=== PATIENT | male | born 1940 | race Hispanic/Latino ===

== ENCOUNTER 2021-09-23 09:19 | Outpatient (CLI) | payer OTHER, SELFPAY ==
--- NOTE | ~2021-09-23 | XR_ITS ---
XR shoulder LT min 2V DATE: 09/23/2021 09:43 INDICATION: Bilateral anterior shoulder pain for 2 months. No known injury. TECHNIQUE: 4 views COMPARISON: None FINDINGS: There is spurring of the humeral head at the glenohumeral joint consistent with osteoarthri tis. There is a focal calcification at the superior aspect of the greater tuberosity consistent with calci fic tendinitis at the rotator cuff insertion. No fracture, dislocation, periosteal reaction or bone destruction. 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 ER SPLICER
--- NOTE | ~2021-09-23 | XR_ITS ---
XR cervical spine 4-5V DATE: 09/23/2021 09:43 INDICATION: Bilateral shoulder pain for 2 months, radiating to neck TECHNIQUE: AP, open-mouth, lateral, swimmer views COMPARISON: None FINDINGS: C1 and C2 are normally aligned and the odontoid process is intact. No fracture or dislocati on, locked facet or prevertebral soft tissue swelling is detected. There is levocurvature of the cervical spine. There is approximately 1.2 mm anterolisthesis at C4-5 and at C6-7 and approximately 2.3 mm anterolist hesis at C7-T1. There is mild loss of interspace height at C2-3 and C3-4. There is moderately severe degenerative disc disease at C5-6, mild degenerative disc disease at C6-7. There is uncovertebral joint spurring, particularly at C5-6 and on the right at C6-7. IMPRESSION: Cervical spondylosis including mild anterolisthesis at multiple levels Reviewed, dictated and finalized at location B. Y SPECIALIST IMPRESSION: Cervical spondylosis including mild anterolisthesis at multiple lev els
--- NOTE | ~2021-09-23 | XR_ITS ---
XR shoulder RT min 2V DATE: 09/23/2021 09:43 INDICATION: Bilateral anterior shoulder pain for 2 months. No known injury. TECHNIQUE: 4 views COMPARISON: None FINDINGS: Diffuse osteopenia. No fracture or dislocation, periosteal reaction or bone destruction. No abnormal soft tissue calcification. IMPRESSION: Osteopenia Reviewed, dictated and finalized at location B. CLASSROOM TUTOR IMPRESSION: Osteopenia
== END 2021-09-23 09:20 | disposition home or self-care (01) ==
LOC: ANHIMG 09:24
PROVIDERS: PCP Family Medicine; Visit Provider Family Medicine
DX: M85.811 Other specified disorders of bone density and structure, right shoulder (principal); M75.102 Unspecified rotator cuff tear or rupture of left shoulder, not specified as traumatic; M75.32 Calcific tendinitis of left shoulder; M19.012 Primary osteoarthritis, left shoulder; M47.892 Other spondylosis, cervical region
CPT/HCPCS: 72050; 73030

== ENCOUNTER 2021-10-31 09:18 | Outpatient (CLI) | payer OTHER, SELFPAY ==
--- NOTE | ~2021-10-31 | XR_ITS ---
XR knee LT min 4V DATE: 10/31/2021 09:42 INDICATION: Fall one week ago. Posterior left knee pain. TECHNIQUE: 4 views COMPARISON: None FINDINGS: There is a staple surgical device in the medial femoral condyle. There is severe osteoarthritic change at the lateral and patellofemoral compartments including joint space narrowing and prominent periarticular spurring. There is valgus deformity. There is moderate suprapatellar knee joint effusion. There is mild chondrocalcinosis. No fracture or dislocation, periosteal reaction or bone destruction is detected. IMPRESSION: Severe osteoarthritis at the patellofemoral and lateral compartments Knee joint effusion Chondrocalcinosis Postoperative change of the medial femoral condyle Reviewed, dictated and finalized at location A. IMPRESSION: Severe osteoarthritis at the patellofemoral and lateral compartment s Knee joint effusion Chondrocalcinosis Postoperative change of the medial femoral condyle
--- NOTE | ~2021-10-31 | XR_ITS ---
XR hip LT min 3V w AP pelvis DATE: 10/31/2021 09:42 INDICATION: Fall one week ago. Left hip pain. TECHNIQUE: AP pelvis. AP, lateral and crosstable lateral views of left hip COMPARISON: None . FINDINGS: There is degenerative disc disease at included L3-4 through L5-S1. The pubic symphysis and sacroiliac joints are intact. No pelvic fracture or bone destruction. Hip joint spaces are symmetric and relatively preserved. No fracture, dislocation, avascular necrosis or bone destruction of the left hip IMPRESSION: Degenerative disc disease at included L3-4 through L5-S1 Negative left hip Reviewed, dictated and finalized at location A.
== END 2021-10-31 09:19 | disposition home or self-care (01) ==
PROVIDERS: PCP Family Medicine; Visit Provider Family Medicine
DX: M25.552 Pain in left hip (principal); M25.462 Effusion, left knee; M17.12 Unilateral primary osteoarthritis, left knee; M51.37 Other intervertebral disc degeneration, lumbosacral region
CPT/HCPCS: 73502; 73564

== ENCOUNTER 2021-12-09 10:00 | Outpatient (RCR) | payer OTHER, SELFPAY ==
[2021-10-16 08:03] VITALS: BP_SYST 170
--- NOTE | 2021-10-16 09:20 | PTOPEVAL ---
Thank you for referring Marcelo Askew to [facility].? The patient is scheduled to be seen for therapy? ____x/week for ___ weeks. Please review, sign, date and return this plan of care ITALIA. I agree with and certify that the following plan of care is medically necessary. Referring Physician Date Admitting Provider: Attending Provider: Jason Diaz MD Referring Provider: *PT Outpatient Evaluation Start: 10/16/21 Evaluation Information Diagnosis Pain in both shoulders Onset ~3 months Subjective Information Pt states for the last few Query Text:As Reported By Patient/ months he has been having pain Family in both shoulder R>L. He states certain ways he raises his arm, or lifts something there will be pain. He states he has been taking Tylenol and that seems to help a little. Pt states he lifts weights at the gym. He has states lifting with his upper body since his shoulders started hurting, he would like to get back to this. Pain Assessment Bilateral Shoulder(s) Reported Pain Level 3 Pain Description Sharp,With Movement Pain Frequency Acute,Intermittent Lowest Pain Intensity 0 Greatest Pain Intensity 8 Pain Aggravating Factors Exercise/Activity,Lifting Upper Extremity Range of Motion Right Scapular: Retraction Normal Shoulder Flexion - Active 132 Shoulder Flexion - Passive 150 Shoulder Abduction - Active 150 Shoulder Abduction - Passive 170 Shoulder Medial Rotation - Active L1 Shoulder Lateral Rotation - Active T4 Scapular/Shoulder Range of Motion Increase pain reports with R Comments shoulder IR Left Scapular: Retraction Normal Shoulder Flexion - Active 132 Shoulder Flexion - Passive 150 Shoulder Abduction - Active 145 Shoulder Abduction - Passive 170 Shoulder Medial Rotation - Active T10 Shoulder Lateral Rotation - Active T4 Upper Extremity Muscle Strength Testing Gross Upper Extremity Strength Comments B shoulder flexion 4-/5 B shoulder abd 4/5 B shoulder IR 4/5 L shoulder ER 4/5 R shoulder ER 3+/5 B elbow flex/ext 4+/5 B senior maintenance machinist strength - firm Posture Posture Evaluation View Posterior Head/C-Spine Posture Neutral Position
--- NOTE | 2021-10-30 09:15 | PCPTNOTE ---
Patient called to cancel appointment this date stating he fell on his hip yesterday and wants to take it easy today due to feeling sore.
[2021-11-13 10:30] VITALS: BP_SYST 170; BP_SYST 178
--- NOTE | 2021-11-13 14:49 | PTOPEVAL ---
PHYSICAL THERAPY PROGRESS NOTE. Thank you for referring Marcelo Askew to [facility].? The patient is scheduled to be seen for therapy? 1x/week for 4 weeks. Please review, sign, date and return this plan of care ITALIA. I agree with and certify that the following plan of care is medically necessary. Referring Physician Date Attending Provider: Jason Diaz MD Evaluation Information Diagnosis Pain in both shoulders Onset ~3 months Subjective Information Pt states he went to see the Query Text:As Reported By Patient/ doctor for his shoulders. He Family received injections in both shoulders. He states therapy is helping and would like to continue. He reports at times he can have minimal shoulder pain, his pain increases with movement. He continues to report more pain in the R shoulder. Self Report Pain Assessment Bilateral Shoulder(s) Reported Pain Level 4 Greatest Pain Intensity 7 Upper Extremity Range of Motion Right Scapular: Retraction Normal Shoulder Flexion - Active 135 Shoulder Flexion - Passive 164 Shoulder Abduction - Active 148 Shoulder Abduction - Passive 170 Shoulder Medial Rotation - Active L1 Shoulder Lateral Rotation - Active T4 Scapular/Shoulder Range of Motion Increase pain reports with R shoulder IR Left Scapular: Retraction Normal Shoulder Flexion - Active 138 Shoulder Flexion - Passive 164 Shoulder Abduction - Active 148 Shoulder Abduction - Passive 178 Shoulder Medial Rotation - Active T10 Shoulder Lateral Rotation - Active T4 Upper Extremity Muscle Strength Testing Gross Upper Extremity Strength Comments B shoulder flexion 4-/5 B shoulder abd 4/5 B shoulder IR 4/5 L shoulder ER 4/5 R shoulder ER 4-/5 B elbow flex/ext 4+/5 B power distributor strength - firm Posture Head/C-Spine Posture Neutral Position Thoracic Spine Posture Neutral Lumbar Spine Posture Neutral Shoulder Posture (L) Rounded,(R) Rounded PT Clinical Summary Marcelo presents to therapy today for his progress report following 7 therapy visits for his diagnosis of bilateral shoulder pain. Today he demonstrates improvements in both his active and passive
[2021-12-09 09:55] VITALS: BP_SYST 174; BP_SYST 178
--- NOTE | 2021-12-09 10:44 | PTOPEVAL ---
PHYSICAL THERAPY PROGRESS REPORT AND DISCHARGE SUMMARY. Thank you for referring Marcelo Askew to [facility].? The patient is scheduled to be discharged from skilled physical therapy services at this time. Please review, sign, date and return this plan of care ITALIA. I agree with and certify that the following plan of care is medically necessary. Referring Physician Date Attending Provider: Jason Diaz MD Evaluation Information Diagnosis Pain in both shoulders Onset ~3 months Subjective Information Pt states he is still having Query Text:As Reported By Patient/ some mild shoulder pain but Family not as bad as before. He has been golfing 4 times without an increase in shoulder pain. Pain Assessment Self Report Pain Assessment Bilateral Shoulder(s) Reported Pain Level 2 Greatest Pain Intensity 4 Additional Pain Comments reports of soreness vs true shoulder pain Upper Extremity Range of Motion Scapular/ Shoulder Range of Motion Right Scapular: Retraction Normal Shoulder Flexion - Active 140 Shoulder Flexion - Passive 168 Shoulder Abduction - Active 155 Shoulder Abduction - Passive 174 Shoulder Medial Rotation - Active T12 Shoulder Lateral Rotation - Active T4 Scapular/Shoulder Range of Motion no reports in shoulder pain Left Scapular: Retraction Normal Shoulder Flexion - Active 151 Shoulder Flexion - Passive 164 Shoulder Abduction - Active 158 Shoulder Abduction - Passive 178 Shoulder Medial Rotation - Active T10 Shoulder Lateral Rotation - Active T4 Upper Extremity Muscle Strength Testing Gross Upper Extremity Strength Comments B shoulder flexion 4+/5 B shoulder abd 4/5 B shoulder IR 4+/5 L shoulder ER 4/5 R shoulder ER 4/5 B elbow flex/ext 4+/5 B litigation examiner strength - firm PT Clinical Summary Marcelo presents to therapy today for his progress report following 12 visits of therapy . Today he demonstrates beyond functional active and passive ROM, good strength that is equal to the uninvolved side, no reports of pain, and improved postural awareness. He has met all of his therapy goals at this time and no longer requires skilled care. He is to be di
== END 2021-12-10 11:04 | disposition home or self-care (01) ==
LOC: ANHPT 10:00
PROVIDERS: PCP Family Medicine; Visit Provider Orthopaedic Surgery
DX: M25.511 Pain in right shoulder (principal); M25.512 Pain in left shoulder
CPT/HCPCS: 97110; 97112; 97140; 97161

== ENCOUNTER → 2024-04-11 10:43 | Outpatient (CLI) | payer MEDICARE, SELFPAY ==
--- NOTE | ~2024-04-11 | XR_ITS ---
EXAMINATION:XR cervical spine 4-5V DATE: 04/11/2024 11:04 INDICATION: 3 months of cervicalgia TECHNIQUE: AP, lateral, lateral swimmers and odontoid views of the cervical spine are provided. COMPARISON: 09/23/2021 FINDINGS: 12 degrees cervical levocurvature. 2 mm anterolisthesis C4 on C5. Odontoid is intact. Normal atlanto axial interval. Vertebral body heights are normal. Moderate disc height loss with degenerative anteri or endplate osteophytes at C5-C6. Mild disc height loss at C2-C3, C3-C4 and C6-C7. Severe uncovertebr al osteoarthritis on the right at C5-C6 and C6-C7 with mild to moderate uncovertebral osteoarthritis at the remaining cervical levels. There is also severe cervical facet osteoarthritis bilaterally at C 4-C5 and on the right at C5-C6 and C6-C7. Mild to moderate facet osteoarthritis the remaining cervica l levels. Prevertebral soft tissues are normal. Visualized apices of the lungs are clear. IMPRESSION: 1. Moderate cervical spondylosis. Reviewed, dictated and finalized at location A.
== END ==
PROVIDERS: PCP Family Medicine; Visit Provider Family Medicine
DX: M43.02 Spondylolysis, cervical region (principal)
CPT/HCPCS: 72050

== ENCOUNTER 2024-04-17 08:22 | Outpatient (CLI) | payer MEDICARE, SELFPAY ==
--- NOTE | ~2024-04-17 | MR_ITS ---
MR cervical spine wo con Ordering provider: Francisco Hudson MD History: 83 years Male with . Cervicalgia, right side neck pain . Comparison: None. Technique: MRI cervical spine without contrast. FINDINGS: CERVICAL SPINAL CORD/CRANIAL CERVICAL JUNCTION: Normal in signal and caliber. CERVICAL VERTEBRAL BODIES: Normal height and alignment. Normal marrow signal. DISK SPACES: Degenerative disc disease seen at the level of C5-C6 and C6-C7. Multilevel facet joint d isease involving the levels of C3-C4, C4-C5, C5-C6 and C6-C7 more on the right side. C2-C3: No stenosis. C3-C4: No stenosis. Narrowing of the right and left foramen most likely by osteophytes. Root compress ion is possible. C4-C5: No stenosis. C5-C6: No stenosis. Mild diffuse disc bulge with osteophyte complex. Mild narrowing of the right inte rvertebral foramen with root compression. C6-C7: No stenosis. C7-T1: No stenosis. VISUALIZED PARASPINOUS SOFT TISSUES: Normal. IMPRESSION: 1. No acute osseous abnormality. 2. Multilevel degenerative disc disease with multilevel facet joint disease. 3. Variable degrees of intervertebral foraminal narrowing Reviewed, dictated and finalized at location A.
== END 2024-04-17 08:23 | disposition home or self-care (01) ==
LOC: GOSHIMG 08:23
PROVIDERS: PCP Family Medicine; Visit Provider Family Medicine
DX: M50.30 Other cervical disc degeneration, unspecified cervical region (principal)
CPT/HCPCS: 72141